=== PATIENT | female | born 1950 | race Caucasian/White ===

== ENCOUNTER → 2017-02-19 | Outpatient (CLI) | payer MEDICARE, OTHER ==
--- NOTE | 2017-02-21 14:51 | RAD ---
Four views of the left knee. INDICATION: Pain. COMPARISON: None. FINDINGS: No acute fracture, dislocation or suspicious osseous lesions are identified. There are moderate hypertrophic degenerative changes with joint space narrowing, subchondral sclerosis and osteophytosis primarily involving the medial compartment of the left knee. No joint effusion identified. Bone mineralization appears within normal limits. Soft tissues have a normal radiographic appearance. IMPRESSION: Moderate osteoarthritic type degenerative changes, no radiographic evidence for acute osseous abnormality. Electronically signed by: Mamadou Pal MD 02/21/2017 2:50 PM [facility] Workstation: [id number]
--- NOTE | 2017-02-21 14:53 | RAD ---
Frontal pelvis radiograph Image: Pain. COMPARISON: None. FINDINGS: Pelvic ring inlet appears maintained. There is sclerosis of the pubic symphysis. There is no widening of the pubic symphysis or sacral iliac joints. No displaced or diastatic pelvic fractures identified. No suspicious osseous lesions appreciated. There are moderate hypertrophic degenerative changes of both hip joints with joint space narrowing and osteophytosis. No acute fracture, dislocation or suspicious osseous lesions identified. Impression: Osteoarthritic type degenerative changes of both hip joints and pubic symphysis, but no radiographic evidence for acute osseous abnormality the pelvis. Electronically signed by: Mamadou Pal MD 02/21/2017 2:52 PM [facility] Workstation: [id number]
== END | disposition home or self-care (01) ==
LOC: RAD 14:02
PROVIDERS: ATTEND Orthopaedic Surgery
DX: M25.562 Pain in left knee (principal); M25.552 Pain in left hip

== ENCOUNTER → 2017-04-16 | Outpatient (CLI) | payer MEDICARE, OTHER | LOC: GMAH 10:29 | PROVIDERS: ATTEND Family Medicine | DX: E78.00 Pure hypercholesterolemia, unspecified (principal); I10 Essential (primary) hypertension ==

== ENCOUNTER → 2017-05-13 | Outpatient (CLI) | payer MEDICARE, OTHER ==
--- NOTE | 2017-05-13 10:20 | RAD ---
EXAM DESCRIPTION: Knee,Right Complete CLINICAL HISTORY: 67 years, Female, KNEE PAIN COMPARISON: None TECHNIQUE: Four views of the right knee FINDINGS: Advanced degenerative changes of the right knee without significant joint effusion with sclerosis and [id number] appearance of the medial joint compartment with marginal osteophytes. The lateral joint compartment is better preserved with advanced patellofemoral degenerative arthropathy noted. No fracture or dislocation seen. IMPRESSION: 1. Advanced degenerative changes right knee. Electronically signed by: Jeffery Heck MD 05/13/2017 10:18 AM CDT
== END | disposition home or self-care (01) ==
LOC: RAD 07:54
PROVIDERS: ATTEND Orthopaedic Surgery
DX: M25.561 Pain in right knee (principal)

== ENCOUNTER → 2017-08-05 | Outpatient (CLI) | payer MEDICARE, OTHER ==
--- NOTE | 2017-08-05 09:12 | RAD ---
EXAM DESCRIPTION: Knee,Right Complete CLINICAL HISTORY: 67 years Female, KNEE PN TECHNIQUE: 4 views of the right knee were performed. COMPARISON: None available. FINDINGS: The visualized bones appear well mineralized. No acute fracture or dislocation. Tricompartmental osteoarthritis is noted, worse in the medial tibiofemoral compartment. Tiny suprapatellar joint effusion is noted. The soft tissues appear grossly unremarkable. IMPRESSION: Tricompartmental osteoarthritis with tiny suprapatellar joint effusion. Electronically signed by: Mayuri Andersen MD 08/05/2017 9:11 AM CDT
--- NOTE | 2017-08-05 09:13 | RAD ---
EXAM DESCRIPTION: Pelvis CLINICAL HISTORY: 67 years Female, HIP PN COMPARISON: None. TECHNIQUE: AP radiograph of the pelvis was performed. FINDINGS: The pelvic ring appears grossly intact on this single AP radiograph. No acute fracture or dislocation. Bilateral sacroiliac joints appear normal. Mild osteoarthritis of bilateral hips. Changes of osteitis pubis are also noted. The visualized lumbo-sacral spine demonstrates mild degenerative changes. IMPRESSION: Mild osteoarthritis of bilateral hips. Changes of osteitis pubis are also noted. Electronically signed by: Mayuri Andersen MD 08/05/2017 9:12 AM CDT
--- NOTE | 2017-08-05 09:14 | RAD ---
EXAM DESCRIPTION: Wrist,Left 3 Views CLINICAL HISTORY: 67 years Female, PN IN WRIST COMPARISON: None available. FINDINGS: The visualized bones are well-mineralized.No acute fracture or dislocation. Negative ulnar variance is noted. Moderate degenerative changes are identified in the first carpometacarpal joint. The soft tissues appear grossly unremarkable. IMPRESSION: Moderate osteoarthritis of the first carpometacarpal joint. Negative ulnar variance. Electronically signed by: Mayuri Andersen MD 08/05/2017 9:13 AM CDT
== END ==
LOC: RAD 08:32
PROVIDERS: ATTEND Orthopaedic Surgery
DX: M17.11 Unilateral primary osteoarthritis, right knee (principal); M16.0 Bilateral primary osteoarthritis of hip; M18.32 Unilateral post-traumatic osteoarthritis of first carpometacarpal joint, left hand; M25.561 Pain in right knee; M25.551 Pain in right hip; M25.532 Pain in left wrist

== ENCOUNTER → 2018-09-02 | Outpatient (CLI) | payer MEDICARE, OTHER | LOC: GMAH 16:37 | PROVIDERS: ATTEND Family Medicine | DX: M25.50 Pain in unspecified joint (principal) ==

== ENCOUNTER → 2019-04-18 | Outpatient (CLI) | payer MEDICARE, OTHER ==
--- NOTE | 2019-04-19 15:43 | MAM ---
EXAM DESCRIPTION: 3D Screening BILATERAL : Digital Mammography. CLINICAL HISTORY: 69 years Female ANNUAL SCREENING . No complaints. No personal or family history of breast cancer. Menarche age 13. No childbirth. Menopause age unknown. No HRT. Benign bilateral breast biopsy. Lifetime risk of developing breast cancer (Tyrer-Cuzick model)(%): 11.1. COMPARISON: 2-D digital screening bilateral mammography November 2015.. TECHNIQUE: Bilateral CC and MLO projection full-field images, digital tomosynthesis mammographic technique. Bilateral digital 2-D full-field MLO images. CAD available for 2-D images. FINDINGS: The breast parenchymal density pattern is: Scattered areas of fibroglandular density. No skin thickening or nipple retraction. Vascular calcifications. Solitary microcalcifications. Right axillary lymph node. Bilateral nodular densities are stable. No new focal, stellate mass or density, focal asymmetry , and no suspicious microcalcifications bilaterally. Stable mammograms compared to prior study. Taking into account, differences in mammographic technique. IMPRESSION: Benign exam. BIRAD CATEGORY: 2 BENIGN FINDINGS. RECOMMENDATIONS: FOLLOW UP: Routine digital bilateral mammographic screening, one year interval from April 2019. Written communication explaining the IMPRESSION and follow-up, will be mailed to the patient and referring health care provider. According to the [employer], yearly mammograms are recommended starting at age 40 and continuing as long as a woman is in good health. Any breast change noted on a breast self-exam should be reported promptly to the patient's healthcare provider. Breast MRI is recommended for women with an approximately 20-25% or greater lifetime risk of breast cancer, including women with a strong family history of breast or ovarian cancer and women who have been treated for Hodgkin's disease. A negative mammographic report should not delay tissue diagnosis in patients with significant clinical history or physical findings. Extremely dense breast tissue limits the sensitivity of digital mammography. Electronically signed by: Truman Albarado MD 04/19/2019 3:41 PM CDT
== END ==
LOC: MAMMO 13:10
PROVIDERS: ATTEND Family Medicine
DX: Z12.31 Encounter for screening mammogram for malignant neoplasm of breast (principal)

== ENCOUNTER → 2019-09-06 | Outpatient (CLI) | payer MEDICARE, OTHER ==
--- NOTE | 2019-09-06 10:18 | RAD ---
EXAM DESCRIPTION: Knee,Left Complete CLINICAL HISTORY: 69 years Female, PAIN IN LEFT KNEE COMPARISON: None. Findings: Four views/radiographs Location: Left knee No acute fracture or dislocation. Severe medial compartment narrowing with lateral tibial translation. Tricompartmental osteophytes. Shallow femoral trochlea. No significant joint effusion. IMPRESSION: Left knee osteoarthritis. No acute osseous abnormality. Electronically signed by: Jose Bolanos MD 09/06/2019 10:16 AM CDT
--- NOTE | 2019-09-06 10:19 | RAD ---
EXAM DESCRIPTION: Knee,Right Complete CLINICAL HISTORY: 69 years Female, PAIN IN RIGHT KNEE COMPARISON: None. Findings: Four views/radiographs Location: Right knee No acute fracture or dislocation. Severe medial compartment narrowing with lateral tibial translation. Tricompartmental osteophytes. No significant joint effusion. Shallow femoral trochlea. Patellofemoral narrowing. IMPRESSION: Right knee osteoarthritis. No acute osseous abnormality. Electronically signed by: Jose Bolanos MD 09/06/2019 10:17 AM CDT
--- NOTE | 2019-09-06 10:25 | RAD ---
EXAM DESCRIPTION: Pelvis CLINICAL HISTORY: HIP PAIN RIGHT AND LEFT COMPARISON: August 05, 2017 FINDINGS: Single AP supine view of the pelvis shows diffuse osteopenia the osseous structures. No acute fracture, focal bone destruction, or joint dislocation. Moderate right greater than left joint space narrowing is seen in the hips with circumferential osteophytes of the femoral heads. Sclerotic changes and osteophytic ridging of the superior lateral acetabulum are seen bilaterally. Bone island superior to the left acetabulum is again seen. Moderate bony hypertrophy and sclerotic changes of the pubic symphysis are identified. Mild osteoarthritic changes of the sacroiliac joints. IMPRESSION: Moderate to severe right and moderate left osteoarthritic changes of the hips are seen. Osteoarthritic changes appear progressively worsened on the right. Osteitis pubis is again seen. Electronically signed by: Polo Hou MD 09/06/2019 10:24 AM CDT
== END ==
LOC: RAD 08:13
PROVIDERS: ATTEND Orthopaedic Surgery
DX: M16.0 Bilateral primary osteoarthritis of hip (principal); M85.38 Osteitis condensans, other site; M17.0 Bilateral primary osteoarthritis of knee

== ENCOUNTER → 2019-11-15 | Outpatient (CLI) | payer MEDICARE, OTHER | LOC: LAB.O 11:15 | PROVIDERS: ATTEND Orthopaedic Surgery | DX: Z01.818 Encounter for other preprocedural examination (principal) ==

== ENCOUNTER → 2019-12-14 | Day surgery (SDC) | payer MEDICARE, OTHER | LOC: AMB 05:09 | PROVIDERS: ATTEND Orthopaedic Surgery | DX: M17.11 Unilateral primary osteoarthritis, right knee (principal); Z53.8 Procedure and treatment not carried out for other reasons ==

== ENCOUNTER 2020-03-15 11:46 | Emergency (ER) | payer MEDICARE, OTHER ==
[2020-03-15] MEDS ORDERED: SODIUM CHLORIDE 0.9% 1000ML 1,000 ML IVS PRN (12:28)
[2020-03-15] MEDS ORDERED: SODIUM CHLORIDE 0.9% (FLUSH) 10 ML SYG IV PRN (12:28)
[2020-03-15 12:59] VITALS: TEMP 98.6
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
[2020-03-15] MEDS ORDERED: NEOMYCIN-BACITRACIN-POLYMYXIN 0.9 GM UD TOP ONE (14:36)
[2020-03-15 14:51] VITALS: BP 142/69; O2SAT 97
== END 2020-03-15 14:50 | disposition home or self-care (01) ==
LOC: ER 11:46
DX: S22.31XA Fracture of one rib, right side, initial encounter for closed fracture (principal); R07.89 Other chest pain; S10.91XA Abrasion of unspecified part of neck, initial encounter; I10 Essential (primary) hypertension; V49.49XA Driver injured in collision with other motor vehicles in traffic accident, initial encounter; Y92.410 Unspecified street and highway as the place of occurrence of the external cause; Z87.891 Personal history of nicotine dependence; Z79.899 Other long term (current) drug therapy; Z79.82 Long term (current) use of aspirin; Z88.5 Allergy status to narcotic agent; Z88.0 Allergy status to penicillin
CPT/HCPCS: 36415; 71260; 80053; 85025; 93005; J7030